=== PATIENT | female | born 1950 | race Caucasian/White ===

== ENCOUNTER 2020-06-29 07:46 | Day surgery (SDC) | payer BC, OTHER ==
[~2020-06-29 07:46] MED LIST: Lidocaine 2% 5 ML SDV ONE; Midazolam 1 MG/ML 2 ML SDV ONE; Ondansetron 4 MG/2 ML SDV ONE; Propofol 200 MG/20 ML SDV ONE; fentaNYL 250 MCG/5 ML SDV ONE
--- NOTE | 2020-06-29 08:24 | PCM.PREANE ---
Preanesthetic Assessment - Anesthesia/Transfusion/Family Hx Anesthesia History: Prior Anesthesia Without Reaction Family History of Anesthesia Reaction: No Transfusion History: Prior Transfusion Without Reaction Intubation History: Unknown - Review of Systems General: No Symptoms Pulmonary: No Symptoms Cardiovascular: No Symptoms Gastrointestinal: No Symptoms Neurological: No Symptoms Other: Reports: None - Physical Assessment Height: 5 ft 5 in Weight: 77.564 kg ASA Class: 2 Mental Status: Alert & Oriented x3 Airway Class: Mallampati = 2 Dentition: Reports: Normal Dentition Thyro-Mental Finger Breadths: 3 Mouth Opening Finger Breadths: 3 ROM/Head Extension: Full Lungs: Clear to Auscultation, Normal Respiratory Effort Cardiovascular: Regular Rate, Regular Rhythm - Allergies Allergies/Adverse Reactions: Allergies Allergy/AdvReac Type Severity Reaction Status Date / Time No Known Allergies Allergy Verified 06/23/20 10:50 - Blood Blood Available: No - Anesthesia Plan Pre-Op Medication Ordered: None - Acknowledgements Anesthesia Type Planned: General Anesthesia Pt an Appropriate Candidate for the Planned Anesthesia: Yes Alternatives and Risks of Anesthesia Discussed w Pt/Guardian: Yes Pt/Guardian Understands and Agrees with Anesthesia Plan: Yes PreAnesthesia Questionnaire HEENT History: Reports: Impaired Vision Other HEENT History: wears glasses Cardiovascular History: Reports: None Respiratory History: Reports: Asthma (mild) Gastrointestinal History: Reports: None Genitourinary History: Reports: None 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 , Musculoskeletal History: Reports: Fracture Other Musculoskeletal History: right ankle Neurological History: Reports: None Psychiatric History: Reports: None Endocrine/Metabolic History: Reports: None Hematologic History: Reports: Blood Transfusion(s) Immunologic History: Reports: None Oncologic (Cancer) History: Reports: None Dermatologic History: Reports: None - Infectious Disease History Infectious Disease History: Reports: Measles, Mumps Other Infectious Disease History: when a child - Past Surgical History Head Surgeries/Procedures: Reports: None HEENT Surgical History: Reports: None Cardiovascular Surgical History: Reports: None GI Surgical History: Reports: None Female Surgical History: Reports: None, LEEP Other Female Surgeries/Procedures: states had laparoscopy due to ectopic - salpingectomy Endocrine Surgical History: Reports: None Neurological Surgical History: Reports: None Musculoskeletal Surgical History: Reports: None Oncologic Surgical History: Reports: None Dermatological Surgical History: Reports: None - SUBSTANCE USE Tobacco Use Status *Q: Former Tobacco User - HOME MEDS Home Medications: Home Meds Albuterol Sulfate 1 spray NASBOTH BID 06/23/20 [History] Albuterol Sulfate [Albuterol Sulfate Hfa] 2 puff INH ASDIRECTED PRN 06/23/20 [History] Cetirizine [ZyrTEC] 1 tab PO DAILY 06/23/20 [History] Garlic 1 tab PO DAILY 06/23/20 [History] Mometasone Furoate [Asmanex] 1 puff INH BID 06/23/20 [History] Montelukast [Singulair] 1 tab PO DAILY 06/23/20 [History] Multivitamin with Minerals [Multiple Vitamin] 1 tab PO BID 06/23/20 [History] Red Yeast Rice 1 tab PO BID 06/23/20 [History] Turmeric 1 tab PO BEDTIME 06/23/20 [History] - CURRENT (IN HOUSE) MEDS Current Meds: Current Medications Discontinued Medications Fentanyl (Sublimaze) Confirm Administered Dose 250 mcg .ROUTE .STK-MED ONE Stop: 06/29/20 07:40 Lidocaine (Xylocaine-Mpf 2%) Confirm Administered Dose 5 ml .ROUTE .STK-MED ONE Stop: 06/29/20 07:40 Midazolam HCl (Versed 1 Mg/Ml) Confirm Administered Dose 2 mg .ROUTE .STK-MED ONE Stop: 06/29/20 07:40 Ondansetron HCl (Zofran) Confirm Administered Dose 4 mg .ROUTE .STK-MED ONE Stop: 06/29/20 07:40 Propofol (Diprivan 20 Ml) Confirm Administered Dose 200 mg .ROUTE .STK-MED ONE Stop: 06/29/20 07:40
[2020-06-29] MEDS ORDERED: Lactated Ringers 1,000 ML IV SCH (08:30)
[2020-06-29] MEDS ORDERED: Glycopyrrolate 0.2 MG/ML SDV ONE (09:55)
--- NOTE | 2020-06-29 10:14 | PCM.OPNOTE ---
- General Post-Op/Procedure Note Date of Surgery/Procedure: 06/29/20 Operative Procedure(s): Endometrial BX. Pre Op Diagnosis: Post menapausal bleeding Post-Op Diagnosis: Same Anesthesia Technique: General LMA Primary Surgeon: Tim GOLDBERG in mLs: 20 Complications: None Condition: Good
--- NOTE | 2020-06-29 10:15 | PCM.DCSUM1 ---
Discharge Summary - Discharge Data Discharge Date: 06/29/20 Discharge Disposition: Home, Self-Care 01 Condition: Good - Referral to Home Health Primary Care Physician: PCP None - Patient Summary/Data Operative Procedure(s) Performed: Endometrial BX. - Patient Instructions Diet: Usual Diet as Tolerated Activity: As Tolerated Driving: Do Not Drive Showering/Bathing: May Shower - Discharge Plan Home Medications: Home Meds Albuterol Sulfate 1 spray NASBOTH BID 06/23/20 [History] Albuterol Sulfate [Albuterol Sulfate Hfa] 2 puff INH ASDIRECTED PRN 06/23/20 [History] Cetirizine [ZyrTEC] 1 tab PO DAILY 06/23/20 [History] Garlic 1 tab PO DAILY 06/23/20 [History] Mometasone Furoate [Asmanex] 1 puff INH BID 06/23/20 [History] Montelukast [Singulair] 1 tab PO DAILY 06/23/20 [History] Multivitamin with Minerals [Multiple Vitamin] 1 tab PO BID 06/23/20 [History] Red Yeast Rice 1 tab PO BID 06/23/20 [History] Turmeric 1 tab PO BEDTIME 06/23/20 [History] - Discharge Summary/Plan Comment DC Time >30 min.: Yes - General Info Date of Service: 06/29/20 Functional Status: Reports: Pain Controlled - Review of Systems General: Reports: No Symptoms HEENT: Reports: No Symptoms Pulmonary: Reports: No Symptoms Cardiovascular: Reports: No Symptoms Gastrointestinal: Reports: No Symptoms Genitourinary: Reports: No Symptoms Musculoskeletal: Reports: No Symptoms Skin: Reports: No Symptoms Neurological: Reports: No Symptoms Psychiatric: Reports: No Symptoms - Patient Data Vitals - Most Recent: Last Vital Signs Temp 36.6 C 06/29/20 10:04 Pulse 89 06/29/20 10:10 Resp 9 L 06/29/20 10:10 BP 104/67 06/29/20 10:10 Pulse Ox 99 06/29/20 10:10 Weight - Most Recent: 77.564 kg Med Orders - Current: Current Medications Lactated Ringer's (Ringers, Lactated) 1,000 mls @ 125 mls/hr IV ASDIRECTED FOX Last Admin: 06/29/20 08:10 Dose: 125 mls/hr Documented by: Discontinued Medications Fentanyl (Sublimaze) Confirm Administered Dose 250 mcg .ROUTE .STK-MED ONE Stop: 06/29/20 07:40 Glycopyrrolate (Robinul) Confirm Administered Dose 0.2 mg .ROUTE .STK-MED ONE Stop: 06/29/20 09:56 Lidocaine (Xylocaine-Mpf 2%) Confirm Administered Dose 5 ml .ROUTE .STK-MED ONE Stop: 06/29/20 07:40 Midazolam HCl (Versed 1 Mg/Ml) Confirm Administered Dose 2 mg .ROUTE .STK-MED ONE Stop: 06/29/20 07:40 Ondansetron HCl (Zofran) Confirm Administered Dose 4 mg .ROUTE .STK-MED ONE Stop: 06/29/20 07:40 Propofol (Diprivan 20 Ml) Confirm Administered Dose 200 mg .ROUTE .STK-MED ONE Stop: 06/29/20 07:40 - Exam General: Reports: Alert, Oriented HEENT: Reports: Pupils Equal, Pupils Reactive, EOMI, Mucous Membr. Moist/[place] Neck: Reports: Supple Lungs: Reports: Clear to Auscultation, Normal Respiratory Effort Cardiovascular: Reports: Regular Rate, Regular Rhythm GI/Abdominal Exam: Normal Bowel Sounds, Soft, Non-Tender, No Organomegaly, No Distention, No Abnormal Bruit, No Mass, Pelvis Stable (Female) Exam: Normal External Exam, Normal Speculum Exam, Normal Bimanual Exam Rectal (Female) Exam: Normal Exam, Normal Rectal Tone Back Exam: Reports: Normal Inspection, Full Range of Motion Extremities: Normal Inspection, Normal Range of Motion, Non-Tender, No Pedal Edema, Normal Capillary Refill Skin: Reports: Warm, Dry, Intact Wound/Incisions: Reports: Healing Well Neurological: Reports: No New Focal Deficit Psy/Mental Status: Reports: Alert, Normal Affect, Normal Mood
--- NOTE | 2020-06-29 10:26 | PCM.POSTAN ---
POST ANESTHESIA ASSESSMENT - MENTAL STATUS Mental Status: Alert, Oriented - VITAL SIGNS Vital Signs: Last Vital Signs Temp 36.6 C 06/29/20 10:04 Pulse 105 H 06/29/20 10:20 Resp 13 06/29/20 10:20 BP 134/82 06/29/20 10:20 Pulse Ox 95 06/29/20 10:20 - RESPIRATORY Respiratory Status: Respiratory Rate WNL, Airway Patent, O2 Saturation Stable - CARDIOVASCULAR CV Status: Pulse Rate WNL, Blood Pressure Stable - GASTROINTESTINAL GI Status: No Symptoms - PAIN Pain Score: 0 - POST OP HYDRATION Hydration Status: Adequate & Stable - OBSERVATIONS Free Text/Narrative:: No anesthesia problems
--- NOTE | 2020-06-29 10:56 | PCM48HPAN ---
Post Anesthesia Note - EVALUATION WITHIN 48HRS OF ANESTHETIC Vital Signs in Normal Range: Yes Patient Participated in Evaluation: Yes Respiratory Function Stable: Yes Airway Patent: Yes Cardiovascular Function Stable: Yes Hydration Status Stable: Yes Pain Control Satisfactory: Yes Nausea and Vomiting Control Satisfactory: Yes Mental Status Recovered: Yes Vital Signs: Last Vital Signs Temp 36.6 C 06/29/20 10:04 Pulse 105 H 06/29/20 10:20 Resp 13 06/29/20 10:20 BP 134/82 06/29/20 10:20 Pulse Ox 95 06/29/20 10:20 - COMMENTS/OBSERVATIONS Free Text/Narrative:: No anesthesia problems
--- NOTE | 2020-06-29 14:15 | OR ---
SURGEON: Tim Ferreira MD DATE OF PROCEDURE: 06/29/2020 PREOPERATIVE DIAGNOSIS: Postmenopausal bleeding. POSTOPERATIVE DIAGNOSIS: Postmenopausal bleeding. OPERATION PERFORMED: Endometrial biopsy. DIRECTOR OF VITAL STATISTICS: OR tech. ANESTHESIA: LMA, Mr. Chris Cooper. ESTIMATED BLOOD LOSS: Minimum. COMPLICATIONS: None. FINDING: Endometrial biopsy sample. INDICATIONS FOR SURGERY: This patient is 69. She had 2 episodes of postmenopausal bleeding. She was referred by the [facility] [place] for endometrial biopsy, possible hysteroscopy. However, I attempted to do the endometrial biopsy in the office and was unsuccessful, so we elected to do under anesthesia, and we proceeded for that. PROCEDURE IN DETAIL: The patient was brought to the OR, properly identified. After adequate level of anesthesia, patient placed in lithotomy position, prepped and draped in sterile fashion as usual. A short weighted speculum was placed in the vagina and the tenaculum applied to the cervix. The cervical canal was identified, dilated slightly, and then the pipelle was put in the endometrial cavity and suction sampling of the endometrial cavity was done and sent for histopathology. There was very scant amount of tissue. It was felt that since there was very scant amount of tissue, there was no need to do a hysteroscopy, so we ended the procedure at this step. Instrument and sponge count were correct. The patient tolerated the procedure well, went to recovery room in stable general condition. KEVIN / SRIKANTH /[id number]
== END 2020-06-29 11:03 | disposition home or self-care (01) ==
LOC: MW.SDS 07:46
PROVIDERS: ATTEND Obstetrics & Gynecology
DX: N95.0 Postmenopausal bleeding (principal); J45.909 Unspecified asthma, uncomplicated; Z79.899 Other long term (current) drug therapy; Z87.891 Personal history of nicotine dependence
CPT/HCPCS: 58100; 88305; J2001; J2250; J2405; J2704; J3010; J3490; J7120; 00940

== ENCOUNTER 2021-05-14 09:18 | Emergency (ER) | payer OTHER, MEDICARE ==
--- NOTE | 2021-05-14 09:46 | EDM.PDOC ---
ED HPI GENERAL MEDICAL PROBLEM - General Chief Complaint: Respiratory Problem Stated Complaint: TROUBLE BREATHING/ PAIN IN RIGHT SHOULDER/NECK ARE Time Seen by Provider: 05/14/21 09:38 Source of Information: Reports: Patient - History of Present Illness INITIAL COMMENTS - FREE TEXT/NARRATIVE: 70-year-old female presents complaining of shortness of breath since Friday. cough, hoarse voice. She has a history of asthma. She states she takes her medications. She has used her inhaler. Patient states she has some brown sputum. No fevers. There is some right-sided mild chest discomfort also since friday. Patient is vaccinated against Covid. No exacerbating or alleviating factors. No high fevers. Patient denies any leg swelling. No recent travel or injury or cancer or surgery. Patient states she does not smoke cigarettes. Right Upper Shoulder Pain Score (Numeric/FACES): 3 - Related Data Allergies Allergy/AdvReac Type Severity Reaction Status Date / Time No Known Allergies Allergy Verified 05/14/21 09:30 Home Meds: Home Meds Albuterol Sulfate 1 spray NASBOTH BID 06/23/20 [History] Albuterol Sulfate [Albuterol Sulfate Hfa] 2 puff INH ASDIRECTED PRN 06/23/20 [History] Cetirizine [ZyrTEC] 1 tab PO DAILY 06/23/20 [History] Mometasone Furoate [Asmanex] 1 puff INH BID 06/23/20 [History] Montelukast [Singulair] 1 tab PO DAILY 06/23/20 [History] Multivitamin with Minerals [Multiple Vitamin] 1 tab PO BID 06/23/20 [History] Red Yeast Rice 1 tab PO BID 06/23/20 [History] predniSONE [Prednisone] 50 mg PO DAILY #5 tablet 05/14/21 [Rx] Past Medical History HEENT History: Reports: Impaired Vision Other HEENT History: wears glasses Cardiovascular History: Reports: None Respiratory History: Reports: Asthma Gastrointestinal History: Reports: None Genitourinary History: Reports: None 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 , Musculoskeletal History: Reports: Fracture Other Musculoskeletal History: right ankle Neurological History: Reports: None Psychiatric History: Reports: None Endocrine/Metabolic History: Reports: None Hematologic History: Reports: Blood Transfusion(s) Immunologic History: Reports: None Oncologic (Cancer) History: Reports: None Dermatologic History: Reports: None - Infectious Disease History Infectious Disease History: Reports: Measles, Mumps Other Infectious Disease History: when a child - Past Surgical History Head Surgeries/Procedures: Reports: None HEENT Surgical History: Reports: None Cardiovascular Surgical History: Reports: None GI Surgical History: Reports: None Female Surgical History: Reports: None, LEEP Other Female Surgeries/Procedures: states had laparoscopy due to ectopic - salpingectomy Endocrine Surgical History: Reports: None Neurological Surgical History: Reports: None Musculoskeletal Surgical History: Reports: None Oncologic Surgical History: Reports: None Dermatological Surgical History: Reports: None ED ROS GENERAL - Review of Systems Review Of Systems: See Below Constitutional: Denies: Fever HEENT: Reports: No Symptoms Respiratory: Reports: Shortness of Breath, Cough Cardiovascular: Reports: Chest Pain GI/Abdominal: Reports: No Symptoms : Reports: No Symptoms Musculoskeletal: Reports: Other (no Leg swelling) Skin: Denies: Rash Neurological: Reports: No Symptoms Psychiatric: Reports: No Symptoms ED EXAM, GENERAL - Physical Exam Exam: See Below Free Text/Narrative:: CONSTITUTIONAL: well appearing in no acute distress O2 saturation 93% on room airnormal SKIN: Warm, dry, and intact without rash HENT: Normocephalic, atraumatic, PULMONARY: Bilateral diminished breath sounds with moderate air exchange. No definite wheeze CARDIOVASCULAR: regular rate, No murmur, rubs, or gallops. No jugular venous distention GASTROINTESTINAL: soft, nondistended, nontender NEUROLOGIC: normal speech, II-XII intact. light touch/5/5 power equal and symmetric in upper and lower extremities without deficit MUSCULOSKELETAL: no gross deformities, atraumatic. No pitting edema. No unilateral leg swelling PSYCHIATRIC: normal mood and affect #1 Interpretation Time: 09:57 EKG Interpretation Comments: EKG: sinus achycardia, nonspecific ST/T changes, Rate -114 Course - Vital Signs Text/Narrative:: Differential diagnosis: Covid, ACS, viral syndrome, pneumonia, asthma, PE, CHF, other Patient presents as outlined above. Patient given breathing treatment with improvement in the emergency department. Patient's chest x-ray clear and Covid negative. Patient very low risk for PE. Troponin negative after a number of days of symptoms. EKG no acute ST-T findings to suggest ACS. Tachycardia in the setting of beta agonist inhaler. repeat examination reveals wheezing. Patient with objective hoarse voice and certainly appears to have viral infection with underlying active reactive airway disease. Patient will be given steroids and has inhaler at home with return precautions and PCP follow-up. Last Recorded V/S: Last Vital Signs Temp 36.0 C L 05/14/21 09:34 Pulse 104 H 05/14/21 09:34 Resp 20 05/14/21 09:34 BP 175/95 H 05/14/21 09:34 Pulse Ox 94 L 05/14/21 09:34 - Orders/Labs/Meds Orders: Active Orders 24 hr Category Date Time Status RT Aerosol Therapy [RC] ASDIRECTED Care 05/14/21 10:57 Ordered B-TYPE NATRIURETIC PEPTIDE,BNP [CHEM] Stat Lab 05/14/21 09:43 Ordered CBC WITH AUTO DIFF [HEME] Stat Lab 05/14/21 09:43 Ordered COMPREHENSIVE METABOLIC PN,CMP [CHEM] Stat Lab 05/14/21 09:43 Ordered TROPONIN I [CHEM] Stat Lab 05/14/21 09:43 Ordered Labs: Laboratory Tests 05/14/21 Range/Units 09:53 SARS-CoV-2 RNA (TANK) NEGATIVE (NEGATIVE) Meds: Medications Discontinued Medications Generic Name Dose Route Start Last Admin Trade Name Freq PRN Reason Stop Dose Admin Albuterol/Ipratropium 3 ml 05/14/21 10:57 Albuterol/Ipratropium 3.0-0.5 Mg/3 Ml Neb Soln NEB 05/14/21 10:58 ONETIME ONE Prednisone 60 mg 05/14/21 10:58 Prednisone 20 Mg Tab PO 05/14/21 10:59 ONETIME ONE Departure - Departure Time of Disposition: 11:06 Disposition: Home, Self-Care 01 Condition: Good Clinical Impression: Acute asthma - Discharge Information Instructions: Asthma, Adult Referrals: [facility] INSURANCE PLAN SPECIALIST [Primary Care Provider] - Forms: ED Department Discharge Additional Instructions: Take steroids as prescribed. Use inhaler 2 puffs 4 times a day for the next 2 days then as needed thereafter. Return for any change or worsening condition Sepsis Event Note (ED) - Evaluation Sepsis Screening Result: No Definite Risk - Focused Exam Vital Signs: Vital Signs Temp Pulse Resp BP Pulse Ox 05/14/21 09:34 36.0 C L 104 H 20 175/95 H 94 L - My Orders Last 24 Hours: My Active Orders 05/14/21 09:43 B-TYPE NATRIURETIC PEPTIDE,BNP [CHEM] Stat CBC WITH AUTO DIFF [HEME] Stat COMPREHENSIVE METABOLIC PN,CMP [CHEM] Stat TROPONIN I [CHEM] Stat 05/14/21 10:57 RT Aerosol Therapy [RC] ASDIRECTED - Assessment/Plan Last 24 Hours: My Active Orders 05/14/21 09:43 B-TYPE NATRIURETIC PEPTIDE,BNP [CHEM] Stat CBC WITH AUTO DIFF [HEME] Stat COMPREHENSIVE METABOLIC PN,CMP [CHEM] Stat TROPONIN I [CHEM] Stat 05/14/21 10:57 RT Aerosol Therapy [RC] ASDIRECTED
--- NOTE | 2021-05-14 10:56 | CR ---
Indication: Chest Pain Comparison: None available. Technique: Single AP view chest Findings: There is hyperinflation and chronic interstitial change. There is a small left basilar pleural effusion with adjacent compressive atelectasis versus infiltrates. The cardiomediastinal silhouette is within normal limits. There are calcified granulomas of the bilateral hemithoraces. The bony thorax is grossly intact. Impression: Minimal blunting of left costophrenic angle which may represent a small pleural effusion with adjacent compressive atelectasis. There is mild chronic interstitial change appreciated. Dictated by Nathanael Bateman MD @ 05/14/2021 10:53:54 AM (Electronically Signed)
[2021-05-14] MEDS ORDERED: Albuterol/Ipratropium 3.0-0.5 MG/3 ML Neb Soln NEB ONE (10:57)
[2021-05-14] MEDS ORDERED: predniSONE 20 MG Tab PO ONE (10:58)
== END 2021-05-14 11:40 | disposition home or self-care (01) ==
LOC: MW.ED 09:18
DX: J45.909 Unspecified asthma, uncomplicated (principal); R00.0 Tachycardia, unspecified; Z79.899 Other long term (current) drug therapy; Z20.822 Contact with and (suspected) exposure to COVID-19
CPT/HCPCS: 71045; 87635; 93005; 99285; A9270; J7620-GY; U0002

== ENCOUNTER 2021-06-19 04:32 | Emergency (ER) | payer OTHER, MEDICARE ==
[2021-06-19] MEDS ORDERED: Sodium Chloride 0.9% 10 ML Syringe FLUSH PRN (04:46)
[2021-06-19] MEDS ORDERED: Sodium Chloride 0.9% 2.5 ML Syringe FLUSH PRN (04:46)
[2021-06-19] MEDS ORDERED: Sodium Chloride 0.9% 1,000 ML IV ONE (04:46)
[2021-06-19] MEDS ORDERED: methylPREDNISolone Sodium Succinate 125 MG/2 ML SDV IVPUSH ONE (04:47)
[2021-06-19] MEDS ORDERED: Albuterol 8 GM Inhaler INH STA (04:52)
--- NOTE | 2021-06-19 04:53 | EDM.PDOC ---
<Shai Jiménez - Last Filed: 06/19/21 06:55> ED HPI GENERAL MEDICAL PROBLEM - General Chief Complaint: Respiratory Problem Stated Complaint: SOB Time Seen by Provider: 06/19/21 05:00 - History of Present Illness INITIAL COMMENTS - FREE TEXT/NARRATIVE: History of present illness: [] Patient has right epigastric pain that radiates to the back for more than a week. Hurts to lay down or move. Patient complains of shortness of breath and cough for 24 hours. She coughs up thick yellow sputum. Patient has history of asthma. Patient uses an inhaler only and does not use a spacer. Shortness of breath is worse with exertion and worse when she lays down. Review of systems: As per history of present illness and below otherwise all systems reviewed and negative. Past medical history: As per history of present illness and as reviewed below otherwise noncontributory. Surgical history: As per history of present illness and as reviewed below otherwise noncontributory. Social history: No reported history of drug or alcohol abuse. Family history: As per history of present illness and as reviewed below otherwise noncontributory. Physical exam: Constitutional - well developed, well-nourished and in no acute distress HEENT - normocephalic, no evidence of trauma - external nose and mouth normal - no mass in neck and no JVD - mucosae moist EYES - full EOM, PERRL, no icterus - no evidence of inflammation, injection, or drainage Respiratory - no respiratory distress, prolonged expiratory phase of respiration-equal bilateral expansion, lungs markedly diminished breath sounds throughout Cardiovascular - Regular Rhythm with S1 and S2 appreciated and no murmur, gallop or rub. GI - abdomen tender right upper quadrant and right hypogastrium-soft without distension or organomegaly - normal bowel sounds - no guard or rebound Musculoskeletal no gross deformity of long bones or joints - no tenderness, swelling or edema Neurologic - Alert and oriented times four - CN II-XII grossly intact - motor sensory and coordination symmetrically normal Psychiatric - appropriate mood and affect with normal thought content Hematologic - No petechiae or purpura - mucosa appropriate color and sclera not pale - normal nail bed color and refill Integument - no rash or evidence of trauma - normal turgor Diagnostics: [] Therapeutics: [] Impression: [] Plan: [] Definitive disposition and diagnosis as appropriate pending reevaluation and review of above. Right Lower Back Pain Score (Numeric/FACES): 6 - Related Data Allergies Allergy/AdvReac Type Severity Reaction Status Date / Time No Known Allergies Allergy Verified 06/19/21 04:45 Home Meds: Home Meds Albuterol Sulfate 1 spray NASBOTH BID 06/23/20 [History] Albuterol Sulfate [Albuterol Sulfate Hfa] 2 puff INH ASDIRECTED PRN 06/23/20 [History] Cetirizine [ZyrTEC] 1 tab PO DAILY 06/23/20 [History] Mometasone Furoate [Asmanex] 1 puff INH BID 06/23/20 [History] Montelukast [Singulair] 1 tab PO DAILY 06/23/20 [History] Multivitamin with Minerals [Multiple Vitamin] 1 tab PO BID 06/23/20 [History] Red Yeast Rice 1 tab PO BID 06/23/20 [History] Past Medical History HEENT History: Reports: Impaired Vision Other HEENT History: wears glasses Cardiovascular History: Reports: None Respiratory History: Reports: Asthma, COPD Gastrointestinal History: Reports: None Genitourinary History: Reports: Other (See Below) Other Genitourinary History: hematuria [employer] History: Reports: Ectopic , Musculoskeletal History: Reports: Fracture Other Musculoskeletal History: right ankle Neurological History: Reports: None Psychiatric History: Reports: None Endocrine/Metabolic History: Reports: Hypothyroidism Hematologic History: Reports: Blood Transfusion(s) Immunologic History: Reports: None Oncologic (Cancer) History: Reports: None Dermatologic History: Reports: None - Infectious Disease History Infectious Disease History: Reports: Chicken Pox, Measles, Mumps Other Infectious Disease History: when a child - Past Surgical History Head Surgeries/Procedures: Reports: None HEENT Surgical History: Reports: None Cardiovascular Surgical History: Reports: None GI Surgical History: Reports: None Female Surgical History: Reports: None, LEEP Other Female Surgeries/Procedures: states had laparoscopy due to ectopic - salpingectomy Endocrine Surgical History: Reports: None Neurological Surgical History: Reports: None Musculoskeletal Surgical History: Reports: None Oncologic Surgical History: Reports: None Dermatological Surgical History: Reports: None Social & Family History - Family History Family Medical History: No Pertinent Family History - Caffeine Use Caffeine Use: Reports: Coffee #1 Interpretation EKG Interpretation Comments: KG done 06/19/2021 at 4:54 AM shows sinus tachycardia with a heart rate of 129 CO interval 115 [place] 87. Is a Q wave in V2 and V3. Compared to 05/14/2021 no significant change impression no acute injury Course - Re-Assessments/Exams Free Text/Narrative Re-Assessment/Exam: 06/19/21 05:45 And has a large pleural effusion. There is interventional radiology coming to the hospital today but there is a crowded schedule. When the labs are back I will call him and see if he can do an ultrasound-guided thoracentesis for diagnosis and for therapy. Departure - Departure Disposition: DC/[facility] Condition: Good Clinical Impression: Acute asthma, Pleural effusion, right, Leukocytosis - Discharge Information Referrals: Roverto Pugh PLOW SHAKER [Primary Care Provider] - Forms: ED Department Discharge Sepsis Event Note (ED) - Evaluation Sepsis Screening Result: No Definite Risk <Akin Roa - Last Filed: 06/19/21 08:52> ED ROS GENERAL - Review of Systems Review Of Systems: See Below ED EXAM, GENERAL - Physical Exam Exam: See Below Course - Vital Signs Last Recorded V/S: Last Vital Signs Temp 96.5 F L 06/19/21 04:42 Pulse 113 H 06/19/21 08:30 Resp 22 H 06/19/21 06:33 BP 127/77 06/19/21 08:30 Pulse Ox 96 06/19/21 08:30 - Orders/Labs/Meds Orders: Active Orders 24 hr Category Date Time Status BIPAP Adult [RT BiPAP/CPAP] [RC] ASDIRECTED Care 06/19/21 08:15 Active Communication Order [RC] STAT Care 06/19/21 05:17 Active RT Aerosol Therapy [RC] ASDIRECTED Care 06/19/21 07:02 Active RT Post Treatment Assessment [RC] Click to Edit Care 06/19/21 04:52 Active RT Pre-Treatment Assessment [RC] Click to Edit Care 06/19/21 04:52 Active Thoracentesis W/ US Guide [US] Stat Exams 06/19/21 13:00 Ordered CULTURE BLOOD [BC] Stat Lab 06/19/21 06:50 Received CULTURE BLOOD [BC] Stat Lab 06/19/21 06:55 Received LACTIC ACID [CHEM] Stat Lab 06/19/21 08:10 Received UA W/CARLOS MANUEL RFLX IF INDICATED [URIN] Stat Lab 06/19/21 04:53 Ordered Sodium Chloride 0.9% [Saline Flush] Med 06/19/21 04:46 Active 10 ml FLUSH ASDIRECTED PRN Sodium Chloride 0.9% [Saline Flush] Med 06/19/21 04:46 Active 2.5 ml FLUSH ASDIRECTED PRN Blood Culture x2 Reflex Set [OM.PC] Stat Oth 06/19/21 06:49 Ordered Saline Lock Insert [OM.PC] Stat Oth 06/19/21 04:46 Ordered Medication Orders Sodium Chloride (Sodium Chloride 0.9% 10 Ml Syringe) 10 ml FLUSH ASDIRECTED PRN PRN Reason: Keep Vein Open Last Admin: 06/19/21 07:26 Dose: 10 ml Documented by: VIRI Sodium Chloride (Sodium Chloride 0.9% 2.5 Ml Syringe) 2.5 ml FLUSH ASDIRECTED PRN PRN Reason: Keep Vein Open Last Admin: 06/19/21 07:26 Dose: 2.5 ml Documented by: VIRI Labs: Laboratory Tests 06/19/21 06/19/21 06/19/21 Range/Units 04:38 05:05 05:05 WBC 52.09 H (4.0-11.0) K/uL RBC 4.90 (4.30-5.90) M/uL Hgb 13.7 (12.0-16.0) g/dL Hct 39.9 (36.0-46.0) % MCV 81.4 (80.0-98.0) fL MCH 28.0 (27.0-32.0) pg MCHC 34.3 (31.0-37.0) g/dL RDW Std Deviation 42.0 (28.0-62.0) fl RDW Coeff of [place] 14 (11.0-15.0) % Plt Count 873 H (150-400) K/uL MPV 8.80 (7.40-12.00) fL Add Manual Diff YES Neutrophils % (Manual) 84 H (48.0-80.0) % Band Neutrophils % 12 % Lymphocytes % (Manual) 3 L (16.0-40.0) % Monocytes % (Manual) 1 (0.0-15.0) % Nucleated RBC % 0.0 /100WBC Absolute Seg Neuts 43.8 H (1.4-5.7) Band Neutrophils # 6.3 Lymphocytes # (Manual) 1.6 (0.6-2.4) Monocytes # (Manual) 0.5 (0.0-0.8) Nucleated RBCs # 0 K/uL INR APTT (18.6-31.3) SEC VBG pH (7.31-7.41) VBG pCO2 (41-51) mmHG VBG pO2 mmHG VBG HCO3 (23-28) mEq/L VBG Total CO2 (24-29) mmol/L VBG Base Excess (-2.0-3.0) Sodium 132 L (136-145) mmol/L Potassium 4.3 (3.5-5.1) mmol/L Chloride 96 L (98-107) mmol/L Carbon Dioxide 22.2 (21.0-32.0) mmol/L BUN 18 (7.0-18.0) mg/dL Creatinine 1.3 H (0.6-1.0) mg/dL Est Cr Clr Drug Dosing TNP Estimated GFR (MDRD) 40.6 ml/min Glucose 181 H (74-106) mg/dL Calcium 9.2 (8.5-10.1) mg/dL Magnesium 1.8 (1.8-2.4) mg/dL Total Bilirubin 0.9 (0.2-1.0) mg/dL AST 21 (15-37) IU/L ALT 44 (14-63) IU/L Alkaline Phosphatase 168 H (46-116) U/L Troponin I < 0.050 (0.000-0.056) ng/mL B-Natriuretic Peptide (<100) PG/ML Total Protein 7.4 (6.4-8.2) g/dL Albumin 1.8 L (3.4-5.0) g/dL Globulin 5.6 H (2.6-4.0) g/dL Albumin/Globulin Ratio 0.3 L (0.9-1.6) Lipase 25 L (73-393) U/L Influenza Type A RNA NEGATIVE (NEGATIVE) Influenza Type B RNA NEGATIVE (NEGATIVE) SARS-CoV-2 RNA (TANK) NEGATIVE (NEGATIVE) 06/19/21 06/19/21 06/19/21 Range/Units 05:05 05:05 05:05 WBC (4.0-11.0) K/uL RBC (4.30-5.90) M/uL Hgb (12.0-16.0) g/dL Hct (36.0-46.0) % MCV (80.0-98.0) fL MCH (27.0-32.0) pg MCHC (31.0-37.0) g/dL RDW Std Deviation (28.0-62.0) fl RDW Coeff of [place] (11.0-15.0) % Plt Count (150-400) K/uL MPV (7.40-12.00) fL Add Manual Diff Neutrophils % (Manual) (48.0-80.0) % Band Neutrophils % % Lymphocytes % (Manual) (16.0-40.0) % Monocytes % (Manual) (0.0-15.0) % Nucleated RBC % /100WBC Absolute Seg Neuts (1.4-5.7) Band Neutrophils # Lymphocytes # (Manual) (0.6-2.4) Monocytes # (Manual) (0.0-0.8) Nucleated RBCs # K/uL INR 1.30 APTT 29.2 (18.6-31.3) SEC VBG pH (7.31-7.41) VBG pCO2 (41-51) mmHG VBG pO2 mmHG VBG HCO3 (23-28) mEq/L VBG Total CO2 (24-29) mmol/L VBG Base Excess (-2.0-3.0) Sodium (136-145) mmol/L Potassium (3.5-5.1) mmol/L Chloride (98-107) mmol/L Carbon Dioxide (21.0-32.0) mmol/L BUN (7.0-18.0) mg/dL Creatinine (0.6-1.0) mg/dL Est Cr Clr Drug Dosing Estimated GFR (MDRD) ml/min Glucose (74-106) mg/dL Calcium (8.5-10.1) mg/dL Magnesium (1.8-2.4) mg/dL Total Bilirubin (0.2-1.0) mg/dL AST (15-37) IU/L ALT (14-63) IU/L Alkaline Phosphatase (46-116) U/L Troponin I (0.000-0.056) ng/mL B-Natriuretic Peptide 110 H (<100) PG/ML Total Protein (6.4-8.2) g/dL Albumin (3.4-5.0) g/dL Globulin (2.6-4.0) g/dL Albumin/Globulin Ratio (0.9-1.6) Lipase (73-393) U/L Influenza Type A RNA (NEGATIVE) Influenza Type B RNA (NEGATIVE) SARS-CoV-2 RNA (TANK) (NEGATIVE) 06/19/21 Range/Units 08:10 WBC (4.0-11.0) K/uL RBC (4.30-5.90) M/uL Hgb (12.0-16.0) g/dL Hct (36.0-46.0) % MCV (80.0-98.0) fL MCH (27.0-32.0) pg MCHC (31.0-37.0) g/dL RDW Std Deviation (28.0-62.0) fl RDW Coeff of [place] (11.0-15.0) % Plt Count (150-400) K/uL MPV (7.40-12.00) fL Add Manual Diff Neutrophils % (Manual) (48.0-80.0) % Band Neutrophils % % Lymphocytes % (Manual) (16.0-40.0) % Monocytes % (Manual) (0.0-15.0) % Nucleated RBC % /100WBC Absolute Seg Neuts (1.4-5.7) Band Neutrophils # Lymphocytes # (Manual) (0.6-2.4) Monocytes # (Manual) (0.0-0.8) Nucleated RBCs # K/uL INR APTT (18.6-31.3) SEC VBG pH 7.40 (7.31-7.41) VBG pCO2 36 L (41-51) mmHG VBG pO2 32 mmHG VBG HCO3 22 L (23-28) mEq/L VBG Total CO2 21 L (24-29) mmol/L VBG Base Excess -2.1 L (-2.0-3.0) Sodium (136-145) mmol/L Potassium (3.5-5.1) mmol/L Chloride (98-107) mmol/L Carbon Dioxide (21.0-32.0) mmol/L BUN (7.0-18.0) mg/dL Creatinine (0.6-1.0) mg/dL Est Cr Clr Drug Dosing Estimated GFR (MDRD) ml/min Glucose (74-106) mg/dL Calcium (8.5-10.1) mg/dL Magnesium (1.8-2.4) mg/dL Total Bilirubin (0.2-1.0) mg/dL AST (15-37) IU/L ALT (14-63) IU/L Alkaline Phosphatase (46-116) U/L Troponin I (0.000-0.056) ng/mL B-Natriuretic Peptide (<100) PG/ML Total Protein (6.4-8.2) g/dL Albumin (3.4-5.0) g/dL Globulin (2.6-4.0) g/dL Albumin/Globulin Ratio (0.9-1.6) Lipase (73-393) U/L Influenza Type A RNA (NEGATIVE) Influenza Type B RNA (NEGATIVE) SARS-CoV-2 RNA (TANK) (NEGATIVE) Meds: Medications Generic Name Dose Route Start Last Admin Trade Name Freq PRN Reason Stop Dose Admin Sodium Chloride 10 ml 06/19/21 04:46 06/19/21 07:26 Sodium Chloride 0.9% 10 Ml Syringe FLUSH 10 ml ASDIRECTED PRN Administration Keep Vein Open Sodium Chloride 2.5 ml 06/19/21 04:46 06/19/21 07:26 Sodium Chloride 0.9% 2.5 Ml Syringe FLUSH 2.5 ml ASDIRECTED PRN Administration Keep Vein Open Discontinued Medications Generic Name Dose Route Start Last Admin Trade Name Freq PRN Reason Stop Dose Admin Albuterol 8 gm 06/19/21 04:52 06/19/21 05:00 Albuterol 8 Gm Inhaler INH 06/19/21 04:53 8 gm ONETIME STA Administration Albuterol/Ipratropium 3 ml 06/19/21 07:02 06/19/21 07:16 Albuterol/Ipratropium 3.0-0.5 Mg/3 Ml Neb Soln NEB 06/19/21 07:03 3 ml ONETIME ONE Administration Sodium Chloride 1,000 mls @ 999 mls/hr 06/19/21 04:46 06/19/21 04:59 Normal Saline IV 06/19/21 05:46 999 mls/hr .Bolus ONE Administration Ceftriaxone Sodium/Dextrose 1 50 mls @ 100 mls/hr 06/19/21 06:49 06/19/21 07:23 gm/ Premix IV 06/19/21 07:18 100 mls/hr ONETIME ONE Administration Methylprednisolone Sodium Succinate 125 mg 06/19/21 04:47 06/19/21 05:00 Methylprednisolone Sodium Succinate 125 Mg/2 Ml Sdv IVPUSH 06/19/21 04:48 125 mg ONETIME ONE Administration - Re-Assessments/Exams Free Text/Narrative Re-Assessment/Exam: 06/19/21 08:16 Patient will be placed on BiPAP as she is still having some labored breathing she is satting 94% on 4 L but has a lot of/muscle use with breathing. We did speak to interventional radiology and he can do a thoracentesis around 130pm. We spoke to the hospitalist again Dr. Vines he does not feel comfortable keeping the patient here so we will at this time started to transfer for the patient. Departure - Departure Time of Disposition: 08:51 Condition: Good Critical Care Note - Critical Care Note Total Time (mins): 45 Comments: Critical Care Procedure Note Authorized and Performed by: Dr. Roa Total critical care time: Approximately Due to a high probability of clinically significant, life threatening deterioration, the patient required my highest level of preparedness to intervene emergently and I personally spent this critical care time directly and personally managing the patient. This critical care time included obtaining a history; examining the patient; pulse oximetry; ordering and review of studies; arranging urgent treatment with development of a management plan; evaluation of patient's response to treatment; frequent reassessment; and, discussions with other providers. This critical care time was performed to assess and manage the high probability of imminent, life-threatening deterioration that could result in multi-organ failure. It was exclusive of separately billable procedures and treating other patients and teaching time. Sepsis Event Note (ED) - Focused Exam Vital Signs: Vital Signs Temp Pulse Resp BP Pulse Ox 06/19/21 08:30 113 H 127/77 96 06/19/21 07:25 115 H 94 L 06/19/21 06:33 115 H 22 H 139/86 93 L 06/19/21 05:47 122 H 22 H 93 L 06/19/21 05:22 104 H 22 H 95 06/19/21 04:42 96.5 F L 133 H 28 H 147/90 H 93 L - My Orders Last 24 Hours: My Active Orders 06/19/21 08:10 LACTIC ACID [CHEM] Stat 06/19/21 08:15 BIPAP Adult [RT BiPAP/CPAP] [RC] ASDIRECTED 06/19/21 13:00 Thoracentesis W/ US Guide [US] Stat - Assessment/Plan Last 24 Hours: My Active Orders 06/19/21 08:10 LACTIC ACID [CHEM] Stat 06/19/21 08:15 BIPAP Adult [RT BiPAP/CPAP] [RC] ASDIRECTED 06/19/21 13:00 Thoracentesis W/ US Guide [US] Stat
[2021-06-19 05:20] LABS: CORONAVIRUS COVID-19 NAA NEGATIVE (NEGATIVE); INFLUENZA A NAA NEGATIVE (NEGATIVE); INFLUENZA B NAA NEGATIVE (NEGATIVE)
[2021-06-19 05:33] LABS: BLOOD UREA NITROGEN,BUN 18 mg/dL (7.0-18.0); CARBON DIOXIDE,CO2 22.2 mmol/L (21.0-32.0); CHLORIDE,CL 96 mmol/L (98-107); GLUCOSE RANDOM 181 mg/dL (74-106); LIPASE 25 U/L (73-393); POTASSIUM,K 4.3 mmol/L (3.5-5.1); SODIUM,NA 132 mmol/L (136-145)
--- NOTE | 2021-06-19 05:56 | CR ---
INDICATION: Dyspnea TECHNIQUE: Portable upright AP view of the chest COMPARISON: AP chest radiograph 05/14/2021 FINDINGS: There is a moderate-sized right pleural effusion. There is no appreciable left pleural effusion. The cardiac silhouette is nonenlarged. The visualized osseous structures are unremarkable. IMPRESSION: Moderate-size right pleural effusion. Dictated by Marilee Soriano MD @ 06/19/2021 5:55:55 AM (Electronically Signed)
[2021-06-19] MEDS ORDERED: cefTRIAXone 1 GM in Premix Bag 1 BAG IV ONE (06:49)
[2021-06-19] MEDS ORDERED: Albuterol/Ipratropium 3.0-0.5 MG/3 ML Neb Soln NEB ONE (07:02)
== END 2021-06-19 11:36 ==
LOC: MW.ED 04:32
DX: J45.909 Unspecified asthma, uncomplicated (principal); J90 Pleural effusion, not elsewhere classified; D72.829 Elevated white blood cell count, unspecified; R00.0 Tachycardia, unspecified; Z20.822 Contact with and (suspected) exposure to COVID-19
CPT/HCPCS: 0240U; 36415; 71045; 80053; 82803; 83605; 83690; 83735; 83880; 84484; 85025; 85610; 85730; 87040; 93005; 94660; 96365; 96375; 99285; A9270; J0696; J2930; J7030; J7620-GY

== ENCOUNTER 2021-11-28 09:27 | Day surgery (SDC) | payer MEDICARE, OTHER ==
[~2021-11-28 09:27] MED LIST changes: +Lactated Ringers 1,000 ML IV SCH; -Lidocaine 2% 5 ML SDV ONE; -Midazolam 1 MG/ML 2 ML SDV ONE; -Ondansetron 4 MG/2 ML SDV ONE; -Propofol 200 MG/20 ML SDV ONE; -fentaNYL 250 MCG/5 ML SDV ONE
[2021-11-28] MEDS ORDERED: Propofol 200 MG/20 ML SDV ONE ×2 (09:43→10:29)
[2021-11-28] MEDS ORDERED: fentaNYL 100 MCG/2 ML SDV ONE (09:43)
== END 2021-11-28 11:32 | disposition home or self-care (01) ==
LOC: MW.SDS 09:27
PROVIDERS: ATTEND Surgery
DX: Z12.11 Encounter for screening for malignant neoplasm of colon (principal); D12.6 Benign neoplasm of colon, unspecified; K57.30 Diverticulosis of large intestine without perforation or abscess without bleeding; J45.909 Unspecified asthma, uncomplicated; Z79.899 Other long term (current) drug therapy; Z98.890 Other specified postprocedural states
CPT/HCPCS: 45380; 45385; J2704; J3010; J7120; 00812; 99100